=== PATIENT | female | born 1980 | race African-American/Black ===

== ENCOUNTER 2022-01-10 17:07 | Emergency (ER) | payer BC ==
[~2022-01-10] VITALS: Ht 154.9 cm; Wt 97.5 kg
--- NOTE | 2022-01-10 17:55 | NUR ---
RECEVED PT 41 YRS FEMALE CAME FROM [facility]LO[facility] WITH NO DISTRESS
[2022-01-10] MEDS ORDERED: IV NS 0.9% 1,000 ML IV ONE (18:00)
--- NOTE | 2022-01-10 19:03 | NUR ---
SEEN BY DR. SMITH
--- NOTE | 2022-01-10 19:36 | NUR ---
HAND OFF FILEMON WILSON
--- NOTE | 2022-01-10 19:45 | NUR ---
RECEIVED REPORT FROM KATIE GAMA. PATIENT IS AAOX3. CAME WITH HIGH SUGAR LEVEL. WITH IV LINE ON RIGHT AC G20. NURSE AT BEDSIDE FROM [facility]AB [facility]. PER NURSE, HE GAVE HER SEVERAL MEDICATIONS THAT S/E IS DROWSINESS. PATIENT ATTACHED TO MONITOR. VITALS CHECKED.
[2022-01-10 19:47] LABS: ALANINE AMINOTRANSFERASE 22 U/L (12-78); ALBUMIN 3.7 g/dL (3.4-5.0); ALKALINE PHOSPHATASE 127 U/L (46-116); ASPARTATE AMINOTRANSFERASE 20 U/L (15-37); BILIRUBIN,TOTAL 0.5 mg/dL (0.2-1.0); CALCIUM, SERUM 9.2 mg/dL (8.5-10.1); CARBON DIOXIDE 32 mmol/L (21-32); CHLORIDE 95 mmol/L (98-107); CREATININE 1.4 mg/dL (0.6-1.3); GLUCOSE 343 mg/dL (74-106); LIPASE 244 U/L (73-393); POTASSIUM 3.6 mmol/L (3.5-5.1); SODIUM SERUM 131 mmol/L (136-145); TOTAL PROTEIN, SERUM 8.2 g/dL (6.4-8.2); UREA NITROGEN, BLOOD 18 mg/dL (7-18)
[2022-01-10] MEDS ORDERED: METF-442 PO ×2 (20:23→20:52)
[2022-01-10 20:50] LABS: BASOPHILS % (AUTO) 0.3 % (0.0-2.0); EOSINOPHILS % (AUTO) 3.3 % (0.0-6.0); HEMATOCRIT 31 % (33-45); HEMOGLOBIN 9.4 g/dL (11.5-14.8); LYMPHOCYTES % (AUTO) 36.6 % (20.0-44.0); MEAN CORPUSCULAR HGB CONC 31 g/dl (31.0-36.0); MEAN CORPUSCULAR VOLUME 65 fL (82-100); MONOCYTES # (AUTO) 0.6 K/uL (0.1-1.30); NEUTROPHILS # (AUTO) 4.4 K/uL (1.8-8.9); NEUTROPHILS % (AUTO) 52.8 % (43.0-81.0); PLATELET COUNT (AUTO) 319 K/uL (150-450); RED BLOOD CELL COUNT(AUTO) 4.79 MIL/uL (4.0-5.2); WHITE BLOOD COUNT (AUTO) 8.3 K/uL (4.3-11.0)
--- NOTE | 2022-01-10 20:55 | NUR ---
Patient discharged to home in stable condition. Written and verbal after care instructions given. Patient verbalizes understanding of instruction.
--- NOTE | 2022-01-10 20:55 | NUR ---
IV CANNULA REMOVED.
[2022-01-10 20:56] VITALS: BP 133/82
[2022-01-10 21:37] LABS: EOSINOPHILS % (MANUAL) 1 % (0-4); LYMPHOCYTES % (MANUAL) 47 % (16-48); MONOCYTES % (MANUAL) 4 % (0-11.0); NEUTROPHILS % (MANUAL) 48 (42-76)
== END 2022-01-10 20:57 ==
LOC: ER 17:07
DX: E11.65 Type 2 diabetes mellitus with hyperglycemia (principal); Z88.5 Allergy status to narcotic agent; Z88.4 Allergy status to anesthetic agent
CPT/HCPCS: 99285; 96360; 85025; 82010; 83690; 36415; 80053; 82962; 85007; J7030